=== PATIENT | female | born 1950 | race Caucasian/White ===

== ENCOUNTER 2016-10-05 07:52 | Emergency (ER) | payer MEDICARE ==
[2016-10-05] MEDS ORDERED: DIPHENHYDRAMINE 50 MG/ML VIAL ONE (08:27)
[2016-10-05] MEDS ORDERED: HALOPERIDOL 5 MG/ML VIAL ONE (08:27)
--- NOTE | 2016-10-05 10:41 | ER PHYSICIAN DOCUMENTATION ---
Physician Documentation [facility] Name:Estefania Arcos Age:66 yrs Sex:Female :1950 Arrival Date:10/05/2016 Time:07:52 Bed4 Private MD: Eamon Powell Disposition: 10/05 09:29 Chart complete. tl1 Disposition: 10/05/16 08:59 Discharged to Home/Self Care. Impression: Migraine Headache, Vomiting - Dehydration. - Condition is Good. - Discharge Instructions: HEADACHE, Migraine (Classical), VOMITING (5y-Adult). - Prescriptions for Compazine 25 mg Rectal Suppository - insert 1 suppository by RECTAL route every 12 hours As needed; 9 suppository. - Medical Reconciliation form form. - Follow up: Private Physician; When: 4- 6 days; Reason: Recheck today's complaints, Continuance of care. - Problem is new. - Symptoms have improved. HPI: 08:06 This 66 yrs old Female presents to ER with complaints of tl1 Nausea/Vomiting/Diarrhea, Headache. 08:06 The patient presents to the emergency department with nausea. tl1 08:21 She is travelling from [place], and has driven here in a camper over the last several tl1 weeks. they arrived in [place] yesterday, and in the afternoon developed a typical migraine h/a with only a transient response to Zomig. Since coming to her h/a is worse and she has vomited multiple times since then. Denies f/c/s, neurological symptoms. She had one loose stool. No blood.. Historical: - Allergies: PENICILLINS; - Home Meds: 1. omeprazole Oral 2. ANTIDEPRESSANT 3. Topamax Oral - PMHx: HIATAL HERNIA; DEPRESSION; KIDNEY DISEASE; - PSHx: ; SINUS; - Tetanus: < 10 years. - Immunization history: Pneumococcal vaccine status is unknown. - Ebola Screening: : Patient denies travel to an Ebola-affected area in the 21 days before illness onset. No symptoms or risks identified at this time. . - Social history: Smoking status: Patient states was never smoker of tobacco. ROS: 08:30 Abdomen/GI: Positive for nausea, vomiting, Negative for abdominal pain, diarrhea, tl1 constipation, hematemesis, black/tarry stool, rectal bleeding. 08:30 : Negative for urinary symptoms. 08:30 All other systems are negative. Exam: 08:31 Head/Face: Normocephalic, atraumatic. tl1 Eyes: Pupils equal round and reactive to light, extra-ocular motions intact. Lids and lashes normal. Conjunctiva and sclera are non-icteric and not injected. Cornea within normal limits. Periorbital areas with no swelling, redness, or edema. ENT: Nares patent. No nasal discharge, no septal abnormalities noted. Tympanic membranes are normal and external auditory canals are clear. Oropharynx with no redness, swelling, or masses, exudates, or evidence of obstruction, uvula midline. Mucous membranes moist. 08:31 Neck: Trachea midline, no thyromegaly or masses palpated, and no cervical tl1 lymphadenopathy. Supple, full range of motion without nuchal rigidity, or vertebral point tenderness. No Meningismus. 08:31 Constitutional: The patient appears alert, awake, well developed, well hydrated, well groomed, well nourished, uncomfortable. 08:31 Cardiovascular: Rate: normal, Rhythm: regular, Heart sounds: normal, Edema: is not appreciated, JVD: is not appreciated. 08:31 Respiratory: the patient does not display signs of respiratory distress, Respirations: normal, Breath sounds: are normal. 08:31 Abdomen/GI: Inspection: abdomen appears normal, Bowel sounds: normal, Palpation: soft, mild abdominal tenderness, in all quadrants. 08:31 Skin: Exam negative for acute changes. 08:31 Neuro: Exam negative for acute changes. Vital Signs: 08:00 BP 159 / 95; Pulse 74; Resp 16; Temp 98.0; Pulse Ox 93% on R/A; Weight 86.18 kg; Height lc 5 ft. 4 in. (162.56 cm); Pain 9/10; 08:35 Pulse 68; Resp 16; Pulse Ox 95% on 2 lpm NC; Pain 3/10; lc 09:32 BP 123 / 78; Pulse 70; Resp 16; Pulse Ox 97% on 2 lpm NC; Pain 0/10; lc 10:31 BP 115 / 80; Pulse 72; Resp 16; Pulse Ox 93% on R/A; Pain 2/10; lc 08:00 Body Mass Index 32.61 (86.18 kg, 162.56 cm) MDM: 08:05 Patient medically screened. tl1 09:29 Differential diagnosis: migraine, tension h/a, viral illness, altitude illness. Doubt tl1 ICH, Meningitis, or other serious pathology at this time. Data reviewed: vital signs, nurses notes, and as a result, I will discharge patient. Counseling: I had a detailed discussion with the patient and/or guardian regarding: the historical points, exam findings, and any diagnostic results supporting the discharge/admit diagnosis, the need for outpatient follow up, to return to the emergency department if symptoms worsen or persist or if there are any questions or concerns that arise at home. Medication response: The patient's symptoms have improved, haldol, benadryl and NS. Response to treatment: the patient's symptoms have markedly improved after treatment, and as a result, I will discharge patient. 10/05 08:41 Order name: Oxygen; Complete Time: 10:33 lc Dispensed Medications: 08:20 Drug: NS 0.9% 1000 ml; Route: IV; Rate: bolus; Site: left antecubital; lc 09:05 Follow up: IV Status: Completed infusion; IV Intake: 1000ml lc 08:20 Drug: Benadryl 25 mg; Route: IVP; Infused Over: 2 mins; Site: left antecubital; lc 09:05 Follow up: Response: No adverse reaction lc 08:22 Drug: Haldol 2.5 mg; Route: IVP; Infused Over: 3 mins; Site: left antecubital; lc 09:05 Follow up: Response: No adverse reaction lc Signatures: Marsha Suazo, Eamon Serrato RN, MD MD tl1
--- NOTE | 2016-10-05 10:41 | ER NURSING DOCUMENTATION ---
Nurse's Notes [facility] Name:Estefania Arcos Age:66 yrs Sex:Female :1950 Arrival Date:10/05/2016 Time:07:52 Bed4 Private MD: Diagnosis:Migraine Headache;Vomiting - Dehydration Presentation: 10/05 08:01 Presenting complaint: Patient states: JUST ARRIVED FROM [place]. C/O RIGHT SIDED PARIKH, lc SIMILAR TO MIGRAINES WITH N/V AND PHOTOPHOBIA. DID NOT TAKE ANY MEDS FOR. NO TRAUMA. 08:01 Acuity: ROYA 3 lc 08:35 Transition of care: patient was not received from another setting of care. lc 08:35 Method Of Arrival: Private Vehicle Triage Assessment: 08:15 General: Appears distressed, ill, Behavior is appropriate for age, cooperative. Pain: lc Complains of pain in right eye Pain At worst was 9 out of 10 on a pain scale. Quality of pain is described as throbbing, Pain began 1 day ago Aggravated by LIGHT. Neuro: Level of Consciousness is awake, alert, Oriented to person, place, time, event, Gait is steady, Speech is normal, Facial symmetry appears normal, Pupils are PERRLA. GI: Abdomen is non- distended Abd is soft X 4 quads Abdomen is tender to palpation SL TO EPIGASTRIC AREA Reports nausea, vomiting, LOOSE STOOL X 1. Derm: Skin is pale. Historical: - Allergies: PENICILLINS; - Home Meds: 1. omeprazole Oral 2. ANTIDEPRESSANT 3. Topamax Oral - PMHx: HIATAL HERNIA; DEPRESSION; KIDNEY DISEASE; - PSHx: ; SINUS; - Tetanus: < 10 years. - Immunization history: Pneumococcal vaccine status is unknown. - Ebola Screening: : Patient denies travel to an Ebola-affected area in the 21 days before illness onset. No symptoms or risks identified at this time. . - Social history: Smoking status: Patient states was never smoker of tobacco. Screenin:40 Infectious Disease Risk None. Abuse screen: Denies threats or abuse. Denies injuries lc from another. Nutritional screening: No deficits noted. Assessment: 08:40 See Triage Assessment done by same RN. GI: Abd is soft X 4 quads. lc 09:31 Reassessment: Patient appears in no apparent distress at this time. VSS, SLEEPING WELL, lc AT BEDSIDE, O2 ON, FLUIDS DONE. 09:59 Reassessment: AROUSES EASILY, FEELS MUCH BETTER, VSS, WANTS TO SLEEP HERE SOME MORE, lc AT BEDSIDE.. Vital Signs: 08:00 BP 159 / 95; Pulse 74; Resp 16; Temp 98.0; Pulse Ox 93% on R/A; Weight 86.18 kg; Height 5 ft. 4 in. (162.56 cm); Pain 9/10; 08:35 Pulse 68; Resp 16; Pulse Ox 95% on 2 lpm NC; Pain 3/10; lc 09:32 BP 123 / 78; Pulse 70; Resp 16; Pulse Ox 97% on 2 lpm NC; Pain 0/10; lc 10:31 BP 115 / 80; Pulse 72; Resp 16; Pulse Ox 93% on R/A; Pain 2/10; lc 08:00 Body Mass Index 32.61 (86.18 kg, 162.56 cm) ED Course: 07:54 Patient arrived in ED. ama 08:01 Marsha Suazo RN is Primary Nurse. 08:05 Eamon Conte MD is Attending Physician. tl1 08:10 Oxygen Oxygen administration via nasal cannula @ 2L/min. lc 08:12 Triage completed. lc 08:20 Inserted peripheral IV: 20 gauge in left antecubital area and blood collected. 08:40 Valuables Remains with patient Patient has correct armband on for positive lc identification. Placed in gown. Bed in low position. Call light in reach. Side rails up X2. Adult w/ patient. Pulse Ox - RN Monitoring Only NIBP On - RN Monitoring Only. Cool cloth applied. Warm blanket given. Head of bed elevated Elevated. Administered Medications: 08:20 Drug: NS 0.9% 1000 ml; Route: IV; Rate: bolus; Site: left antecubital; 09:05 Follow up: IV Status: Completed infusion; IV Intake: 1000ml 08:20 Drug: Benadryl 25 mg; Route: IVP; Infused Over: 2 mins; Site: left antecubital; 09:05 Follow up: Response: No adverse reaction 08:22 Drug: Haldol 2.5 mg; Route: IVP; Infused Over: 3 mins; Site: left antecubital; 09:05 Follow up: Response: No adverse reaction lc Intake: 09:05 IV: 1000ml; Total: 1000ml. Outcome: 08:59 Discharge ordered by . tl1 10:31 Discharged to home ambulatory, with significant other. lc 10:31 Condition: stable 10:31 Discharge Assessment: Patient awake, alert and oriented x 3. No cognitive and/or functional deficits noted. Patient verbalized understanding of disposition instructions. 10:31 Discharge instructions given to patient, significant other, Instructed on discharge instructions, follow up and referral plans. medication usage, Demonstrated understanding of instructions, medications, Prescriptions given X 1. 10:33 IV D/Sumit 10:40 Patient left the ED. lc Signatures: Marsha Suazo RN RN Georgi Morfin, Eamon Fairchild MD MD tl1
== END 2016-10-05 10:41 | disposition home or self-care (01) ==
LOC: ER 07:52
DX: G43.009 Migraine without aura, not intractable, without status migrainosus (principal); E86.0 Dehydration; R11.2 Nausea with vomiting, unspecified; Z79.899 Other long term (current) drug therapy
CPT/HCPCS: 96361; 96374; 96375; 99283; 99284; J1200; J1630

== ENCOUNTER 2016-10-10 13:12 | Emergency (ER) | payer MEDICARE ==
--- NOTE | 2016-10-10 13:34 | ER PHYSICIAN DOCUMENTATION ---
Physician Documentation [facility] Name:Estefania Arcos Age:66 yrs Sex:Female :1950 Arrival Date:10/10/2016 Time:13:12 Bed1 Private MD: Stefan Oliver Disposition: 10/10/16 13:19 Discharged to Home/Self Care. Impression: Wound Infection. - Condition is Good. - Discharge Instructions: Infection - ERYTHEMA. - Prescriptions for Keflex 250 mg Oral - take 1 capsule by ORAL route every 6 hours for 7 days; 28 capsule. - Medical Reconciliation form form. - Follow up: Private Physician; When: 7 - 10 days; Reason: Recheck today's complaints, Continuance of care. - Problem is new. - Symptoms are unchanged. - Notes: Apply warm packs. Take Keflex 250mg by mouth every 6 hours for 7 days. Use SPF-50 Sunscreen for 6 months to prevent scarring. HPI: 10/10 13:15 This 66 yrs old Female presents to ER via Walk In with complaints of Wound cd Infection - TO L HAND and Right Forearm. 13:15 The patient or guardian reports an abrasion, a contusion, mild erythema to left dorsum cd of hand wound that is days old and right forearm abrasion. Historical: - Allergies: PENICILLINS; SULFA (SULFONAMIDES); Erythromycin; - Home Meds: 1. Prozac 20 mg oral cap 1 cap once daily 2. omeprazole 10 mg oral cpDR 2 caps once daily before a meal 3. Topamax 25 mg oral cpSP 2 caps 2 times per day in the morning and evening - PMHx: MIGRAINES; GASTRIC REFLUX; DEPRESSION; - PSHx: None; - Tetanus: < 10 years. - Ebola Screening: : Patient negative for fever greater than or equal to 101.5 degrees Fahrenheit, and additional compatible Ebola Virus Disease symptoms. Patient denies exposure to infectious person. Patient denies travel to an Ebola-affected area in the 21 days before illness onset. No symptoms or risks identified at this time. . - Immunization history: Flu Vaccine < 1 year. - Social history: Smoking status: Patient states was never smoker of tobacco. Patient/guardian denies using alcohol, street drugs. ROS: 13:20 Constitutional: Negative for chills, fever. cd 13:20 MS/extremity: Positive for abrasion, erythema, of the left hand and right forearm. 13:20 Skin: Positive for minimal wound infection without discharge. Exam: 13:20 Constitutional: The patient appears in no acute distress, alert, awake. cd 13:20 Musculoskeletal/extremity: Extremities: grossly normal except: noted in the left hand: abrasion, erythema, noted in the right arm: abrasion, erythema, ROM: no acute changes, Circulation is intact in all extremities. Sensation intact. 13:20 Skin: cellulitis, that is minimal. Vital Signs: 13:23 BP 127 / 64; Pulse 71; Resp 15; Temp 98.3; Pulse Ox 97% on R/A; Weight 81.65 kg; Height mk2 5 ft. 9 in. (175.26 cm); Pain 0/10; 13:23 Body Mass Index 26.58 (81.65 kg, 175.26 cm) mk2 MDM: 13:19 Patient medically screened. cd 13:20 Data reviewed: and as a result, I will discharge patient, administer antibiotics cd Keflex. Data interpreted: Pulse oximetry: on room air is 97 %. Interpretation: normal. Counseling: I had a detailed discussion with the patient and/or guardian regarding: the historical points, exam findings, and any diagnostic results supporting the discharge/admit diagnosis, the need for outpatient follow up, for a recheck, with the patient's primary care provider, to return to the emergency department if symptoms worsen or persist or if there are any questions or concerns that arise at home. Dispensed Medications: No medications were administered Signatures: Stefan Dudley MD MD cd Kruger, Meg RN RN mk2
--- NOTE | 2016-10-10 13:34 | ER NURSING DOCUMENTATION ---
Nurse's Notes [facility] Name:Estefania Arcos Age:66 yrs Sex:Female :1950 Arrival Date:10/10/2016 Time:13:12 Bed1 Private MD: Diagnosis:Wound Infection Presentation: 10/10 13:19 Presenting complaint: Patient states: I just moved into a mobile home and I keep mk2 knocking myself. I think my scrapes may be infected. Transition of care: Home. Care prior to arrival: None. 13:19 Acuity: ROYA 5 2 13:19 Method Of Arrival: Walk In [facility] Triage Assessment: 13:21 General: Appears in no apparent distress, Behavior is cooperative, pleasant. Pain: mk2 Complains of pain in Pt states she has pain only when pressure is placed directly on the cuts themselves, which are in the healing stages. No signs of infection present.Superficial scrapes to dorsal of left hand, UR arm. Derm: healing scrape to left dorsal hand and upper R arm. No signs of infection present. Historical: - Allergies: PENICILLINS; SULFA (SULFONAMIDES); Erythromycin; - Home Meds: 1. Prozac 20 mg oral cap 1 cap once daily 2. omeprazole 10 mg oral cpDR 2 caps once daily before a meal 3. Topamax 25 mg oral cpSP 2 caps 2 times per day in the morning and evening - PMHx: MIGRAINES; GASTRIC REFLUX; DEPRESSION; - PSHx: None; - Tetanus: < 10 years. - Ebola Screening: : Patient negative for fever greater than or equal to 101.5 degrees Fahrenheit, and additional compatible Ebola Virus Disease symptoms. Patient denies exposure to infectious person. Patient denies travel to an Ebola-affected area in the 21 days before illness onset. No symptoms or risks identified at this time. . - Immunization history: Flu Vaccine < 1 year. - Social history: Smoking status: Patient states was never smoker of tobacco. Patient/guardian denies using alcohol, street drugs. Screenin:24 Infectious Disease Risk None. Abuse screen: Denies threats or abuse. Nutritional 2 screening: No deficits noted. Assessment: 13:24 See Triage Assessment done by same RN. [facility] Vital Signs: 13:23 BP 127 / 64; Pulse 71; Resp 15; Temp 98.3; Pulse Ox 97% on R/A; Weight 81.65 kg; Height mk2 5 ft. 9 in. (175.26 cm); Pain 0/10; 13:23 Body Mass Index 26.58 (81.65 kg, 175.26 cm) 2 ED Course: 13:13 Patient arrived in ED. ama 13:18 Jenny Rosenthal, RN is Primary Nurse. 2 13:18 Stefan Dudley MD is Attending Physician. cd 13:19 Triage completed. mk2 13:24 Arm band placed on Bed in low position Call Light in Reach HOB Elevated. mk2 13:32 Valuables Remains with patient. 2 13:32 Wound care was bacitracin from wound care cart placed on healing wounds. 2 Administered Medications: No medications were administered Outcome: 13:19 Discharge ordered by MD. cd 13:33 Discharged to home ambulatory. mk2 13:33 Condition: improved 13:33 Discharge Assessment: Patient awake, alert and oriented x 3. No cognitive and/or functional deficits noted. Patient verbalized understanding of disposition instructions. 13:33 Discharge instructions given to patient, family, Instructed on discharge instructions, follow up and referral plans. medication usage, Prescriptions given X 1. 13:34 Patient left the ED. 2 10/11 15:04 Discharge F/U Call: Unable to reach: non-working number 2 Signatures: Stefan Dudley MD MD cd Kruger, Meg, RN RN 2 Georgi Luke, Reg Reg ama
== END 2016-10-10 13:34 | disposition home or self-care (01) ==
LOC: ER 13:12
DX: T79.8XXA Other early complications of trauma, initial encounter (principal); S60.512D Abrasion of left hand, subsequent encounter; S50.811D Abrasion of right forearm, subsequent encounter; Z79.899 Other long term (current) drug therapy
CPT/HCPCS: 99282; 99283